=== PATIENT | female | born 1945 | race Caucasian/White ===

== ENCOUNTER 2017-07-10 10:05 | Emergency (ER) | payer MEDICARE ==
[~2017-07-10] VITALS: Ht 157.5 cm; Wt 70.0 kg
[2017-07-10 10:08] VITALS: Ht 157.5 cm; Wt 70.0 kg
--- NOTE | 2017-07-10 10:24 | ERD ---
ER Documentation Chief Complaint Chief Complaint right eye pain/ hemmorrhage?, also has hernandez HPI This is a 72-year-old female with a history of hypertension who is presenting with right-sided facial and ocular pain that started shortly after waking up this morning. Her headache started on its own. She has a mild right sided aching to the face and head. The patient also noticed bleeding around the eye, which was concerning to her and ultimately prompted her to come to the ER. It was not after having a bowl movement or after coughing. She doesn't recall bearing down in any way. The patient does not carry a diagnosis of hypertension. She was very busy hosting yesterday and thinks that perhaps that could be why her blood pressure is elevated today. The patient does not endorse any vision changes. She reports any changes to her vision. She has had no clouding or double or blurry vision. Her visual acuity is unchanged. The patient also reports a transient tingling sensation to her hands, but this has since resolved. She denies any history of trauma. The patient denies feeling sick recently. The patient denies fever or chills. The patient does not endorse neck or back pain. The patient denies lightheadedness or dizziness. The patient has had no chest pain or shortness of breath or trouble breathing. The patient denies nausea or vomiting. The patient denies abdominal pain or changes to bowel movements or urination. The patient has had no focal deficits. The patient has had no weakness or numbness or tingling to the face or extremities. ROS All systems reviewed and are negative except as per history of present illness. Medications Home Meds Reported Medications Gabapentin* (Gabapentin*) 100 Mg Capsule, 100 MG PO TID, #90 CAP 07/10/17 Meloxicam* (Meloxicam*) 7.5 Mg/5 Ml Oral.susp, 15 MG PO DAILY, #300 ML 07/10/17 Glipizide* (Glipizide*) 5 Mg Tablet, 5 MG PO DAILY, TAB 07/10/17 Metformin* (Glucophage*) 500 Mg Tab, 500 MG PO BID, #30 TAB 07/10/17 Allergies Allergies: Coded Allergies: No Known Allergy (Unverified , 07/10/17) PMhx/Soc History of Surgery: Yes (Cataract removal to the right eye.) Hx Neurological Disorder: No Hx Respiratory Disorders: No Hx Cardiac Disorders: No Hx Psychiatric Problems: No Hx Miscellaneous Medical Probl: Yes (DM) Hx Substance Use: No Hx Tobacco Use: No FmHx Family History: No coronary disease, No diabetes Physical Exam Vitals Vital Signs Date Time Temp Pulse Resp B/P Pulse Ox O2 Delivery O2 Flow Rate FiO2 07/10/17 14:35 98.7 70 20 149/93 100 Room Air 07/10/17 13:00 97.7 70 18 175/88 Room Air 07/10/17 12:04 97.8 73 20 190/75 Room Air 07/10/17 10:25 98.7 86 18 220/110 Room Air 07/10/17 10:08 98.2 77 18 226/106 99 Physical Exam Const: No apparent distress, well-developed, well-nourished Head: Normocephalic, Atraumatic Eyes: Right eye Subconjunctival hemorrhage. Extraocular movements intact. Pupils equal, round and reactive to light. Visual Acuity 20/30 in both eyes. Periorbital bruising and swelling. Negative Marleen testing. No corneal abrasion. ENT: Normal External Ears, Nose and Mouth. Neck: Full range of motion. No meningismus. Resp: Clear to auscultation bilaterally, No wheezes, rales or rhonchi Cardio: Regular rate and rhythm. No murmurs, rubs or gallops Abd: Soft, non tender, non distended. Normal bowel sounds Skin: No petechiae or rashes Back: No midline tenderness. No CVA tenderness Ext: No cyanosis, or edema Neur: Awake and alert, oriented 4. Cranial nerves intact. No facial droop. Normal strength, sensation and coordination. Psych: Normal Mood and Affect Result Diagram: 07/10/17 1055 07/10/17 1055 Results 24 hrs Laboratory Tests Test 07/10/17 10:55 White Blood Count 5.810^3/ul Red Blood Count 4.0810^6/ul Hemoglobin 11.8g/dl Hematocrit 35.7% Mean Corpuscular Volume 87.5fl Mean Corpuscular Hemoglobin 28.9pg Mean Corpuscular Hemoglobin Concent 33.1g/dl Red Cell Distribution Width 12.7% Platelet Count 05613^3/UL Mean Platelet Volume 11.9fl Neutrophils % 50.5% Lymphocytes % 39.1% Monocytes % 6.6% Eosinophils % 3.1% Basophils % 0.5% Nucleated Red Blood Cells % 0.0/100WBC Neutrophils # 2.910^3/ul Lymphocytes # 2.310^3/ul Monocytes # 0.410^3/ul Eosinophils # 0.210^3/ul Basophils # 0.010^3/ul Nucleated Red Blood Cells # 0.010^3/ul Prothrombin Time 13.2Sec Prothrombin Time Ratio 1.0 INR International Normalized Ratio 0.99 Activated Partial Thromboplast Time 28.9Sec Sodium Level 143mmol/L Potassium Level 4.2mmol/L Chloride Level 103mmol/L Carbon Dioxide Level 29mmol/L Anion Gap 15 Blood Urea Nitrogen 17mg/dl Creatinine 0.72mg/dl Glucose Level 215mg/dl Calcium Level 9.9mg/dl Total Bilirubin 0.3mg/dl Direct Bilirubin 0.00mg/dl Indirect Bilirubin 0.3mg/dl Aspartate Amino Transf (AST/SGOT) 24IU/L Alanine Aminotransferase (ALT/SGPT) 27IU/L Alkaline Phosphatase 103IU/L Troponin I < 0.012ng/ml B-Type Natriuretic Peptide 324PG/ML Total Protein 8.1g/dl Albumin 4.3g/dl Globulin 3.80g/dl Albumin/Globulin Ratio 1.13 Current Medications Medications (Trade) Dose Ordered Sig/Natalie Route PRN Reason Start Time Stop Time Status Last Admin Dose Admin Hydralazine HCl (Apresoline) 10 mg ONCE ONCE IV 07/10/17 12:30 07/10/17 12:31 DC 07/10/17 13:14 Procedures/MDM MDM The patient's presentation warrants further investigation. The patient has a subconjunctival hemorrhage. It does not appear to be affecting her vision or extraocular movements. Her visual acuity was checked and appeared to be about 20 /30 in both eyes. Her pupils are equal, round, reactive to light and accommodation. I have less suspicion for a globe rupture. This does not appear to be associated with glaucoma. She does have a history of cataract removal to the right eye, and she does note taking aspirin occasionally. This may be related. She is also hypertensive which could be related. Her blood pressure was over 200/100. This will be controlled in the ER. This will absolutely need to be managed as an outpatient. There does not appear to be any cranial nerve involvement. However, given the extensive subconjunctival hemorrhage, I am concerned about the possibility of trauma. A CT of the head and face will be obtained. LABS The patient's blood work was obtained and reviewed. The patient's CBC shows no leukocytosis and no left shift. The patient is afebrile and does not appear systemically ill. I do not suspect a systemic infection. The patient is mildly anemic today. The patient's platelet count is unremarkable. The patient's CMP shows no signs of metabolic or electrolyte emergencies. The patient has unremarkable renal and hepatic function testing. The troponin is negative. The BNP is indeterminate. I have less suspicion for CHF in this patient. However, this may correlate with her high blood pressure, which needs to be managed. EKG EKG read by me: Rate/Rhythm: Regular rate and rhythm at a rate of 79 bpm Intervals: Normal [place]: Left axis Impression: No evidence of ischemia or arrhythmia IMAGING CXR FINDINGS: The heart is enlarged. There is increased right paratracheal density, likely secondary to vascular structures. There is no focal infiltrate. There is no pleural effusion or pneumothorax. IMPRESSION: Mild Cardiomegaly. Increased right paratracheal density is likely secondary to vascular structures. However confirmation with a CT chest with contrast on a routine basis is recommended, since a right paratracheal mass cannot be excluded. Electronically viewed and signed by .Chris Parker MD, MD on 07/10/2017 12: 33 CT Head IMPRESSION: No acute intracranial abnormalities. Mild chronic-appearing microvascular ischemic changes of the supratentorial white matter. MRI of the brain can be obtained for further evaluation. Partially visualized right periorbital soft tissue swelling Electronically viewed and signed by .Keyshawn Vallecillo MD, MD on 07/10/2017 12:02 CT Face Right subconjunctival hemorrhage measuring 6 mm in thickness. There is also retrobulbar hyperdensity measuring up to 2-3 mm concerning for hemorrhage. Recommend ophthalmology consult and consider brain/orbit MRI as clinically warranted. No acute facial fracture or dislocation. A call report was made and above findings were discussed and acknowledged by Tiffany Hu on 07/10/2017 12:10 PM . Electronically viewed and signed by .Bree Cooney MD, MD on 07/10/2017 12: 14 TREATMENT/DISPOSITION The patient's vision is intact. She does have subconjunctival hemorrhage. There is also the possibility of a small retrobulbar hemorrhage. The is no evidence of cranial nerve involvement. There is no globe rupture. There is no evidence of retinal detachment or vitreous hemorrhage. Visual acuity is intact. I am still suspicious of trauma, but the patient adamantly denies any injury to the eye. There is a possibility of having beared down to cause the hemorrhage. The case was discussed with an tellers supervisor, Dr. Jarrod Delaney, who would be happy to see the patient as an outpatient tomorrow. An appointment was scheduled for 07/11/2017 and the patient was given the information. The patient's images were discussed with the patient. She will follow up. At this time, I feel that the patient stable for discharge. The patient will follow-up with her primary care physician tomorrow as well. The patient will be given strict precautions with which to return to the emergency department. The patient's blood pressure was elevated at greater than 120/80 while in the emergency department. The patient was otherwise stable with no evidence of hypertensive urgency or emergency or end organ damage. The patient does not require admission for blood pressure control. The patient was given hydralazine in the ER with improvement of her blood pressure. She has sequela of long standing elevated blood pressure. This will likely require medical management as an outpatient. I have discussed with the patient the risks of hypertension. I have advised the patient to follow up with the primary care physician for outpatient monitoring and treatment for hypertension in 2-3 days. She will follow up tomorrow. I have instructed the patient to return to the ER for any new or worsening symptoms including chest pain, shortness of breath, headache, changes in vision, confusion, nausea, vomiting or LOC. Disclaimer: Inadvertent spelling and grammatical errors are likely due to EHR/ dictation software use and do not reflect on the overall quality of patient care. Note that the electronic time recorded on this note does not necessarily reflect the actual time of the patient encounter. Departure Diagnosis: Primary Impression: Subconjunctival hemorrhage Laterality: right Qualified Code: H11.31 - Subconjunctival hemorrhage of right eye Additional Impressions: Pain in eye Laterality: right Qualified Code: H57.11 - Pain of right eye Headache Headache type: unspecified Headache chronicity pattern: acute headache Intractability: not intractable Qualified Code: R51 - Acute nonintractable headache, unspecified headache type Hypertension Hypertension type: unspecified Qualified Code: I10 - Hypertension, unspecified type Periorbital hematoma Laterality: right Qualified Code: H05.231 - Periorbital hematoma of right eye Orbital hemorrhage Laterality: right Qualified Code: H05.231 - Hemorrhage of right orbit Condition: Stable TIFFANY MANRIQUEZ MD Jul 10, 2017 10:24
[2017-07-10 11:33] LABS: BASOPHILS % 0.5 % (0.0-2.0); EOSINOPHILS # 0.2 10^3/ul (0.0-0.5); EOSINOPHILS % 3.1 % (0.0-7.0); HEMATOCRIT 35.7 % (37.0-47.0); HEMOGLOBIN 11.8 g/dl (12.0-16.0); LYMPHOCYTES # 2.3 10^3/ul (0.8-2.9); LYMPHOCYTES % 39.1 % (15.0-51.0); MEAN CORPUSCULAR HEMOGLOBIN 28.9 pg (29.0-33.0); MEAN CORPUSCULAR HGB CONC 33.1 g/dl (32.0-37.0); MEAN CORPUSCULAR VOLUME 87.5 fl (82.0-101.0); MEAN PLATELET VOLUME 11.9 fl (7.4-10.4); MONOCYTE # 0.4 10^3/ul (0.3-0.9); MONOCYTES % 6.6 % (0.0-11.0); NEUTROPHIL # 2.9 10^3/ul (1.6-7.5); NEUTROPHILS % 50.5 % (39.0-77.0); PLATELET COUNT 194 10^3/UL (140-415); RED BLOOD COUNT 4.08 10^6/ul (4.20-5.40); RED CELL DISTRIBUTION WIDTH 12.7 % (11.5-14.5); WHITE BLOOD COUNT 5.8 10^3/ul (4.8-10.8)
[2017-07-10 11:47] LABS: INR 0.99; PARTIAL THROMBOPLASTIN TIME 28.9 Sec (25.0-35.0); PROTIME 13.2 Sec (11.9-14.9)
[2017-07-10 12:01] LABS: ALANINE AMINOTRANSFERASE 27 IU/L (13-69); ALBUMIN 4.3 g/dl (3.3-4.9); ALBUMIN/GLOBULIN RATIO 1.13; ALKALINE PHOSPHATASE 103 IU/L (42-121); ANION GAP 15 (8-16); ASPARTATE AMINO TRANSFERASE 24 IU/L (15-46); BILIRUBIN,INDIRECT 0.3 mg/dl (0-1.1); BILIRUBIN,TOTAL 0.3 mg/dl (0.2-1.3); BLOOD UREA NITROGEN 17 mg/dl (7-20); CALCIUM 9.9 mg/dl (8.4-10.2); CARBON DIOXIDE 29 mmol/L (21-31); CHLORIDE 103 mmol/L (97-110); CREATININE 0.72 mg/dl (0.44-1.00); GLUCOSE 215 mg/dl (70-220); POTASSIUM 4.2 mmol/L (3.5-5.1); SODIUM 143 mmol/L (135-144); TOTAL PROTEIN 8.1 g/dl (6.1-8.1)
--- NOTE | 2017-07-10 12:02 | RADRPT ---
PROCEDURE: CT Brain without contrast. CLINICAL INDICATION: Pain, headache, paresthesias TECHNIQUE: Routine CT scan of the brain was performed on a high resolution multi detector scanner without intravenous contrast. One or more of the following dose reduction techniques were used: Auto mated exposure control; Adjustment of the mA and/or kV according to patient size; Use of iterative r econstruction technique. CTDI = 42 mGy. DLP = 720 mGy-cm. DICOM images are available. COMPARISON: No prior relevant examinations are available for comparison. FINDINGS: Hemorrhage: No evidence of intracranial hemorrhage. Acute ischemic changes: No evidence of acute ischemic changes. Mass effect: None. Parenchymal volume: Within normal limits for age. Ventricular system: Concordant with parenchymal volume. Chronic changes: Mild chronic-appearing microvascular ischemic changes of the supratentorial white m atter. Dense asymmetric calcification of the left internal carotid artery and proximal divisions. Extracranial soft tissues: Partially visualized right periorbital soft tissue swelling. Calvarium: No fractures. Paranasal sinuses: Visualized paranasal sinuses are clear. Mastoid air cells: Visualized mastoid air cells are clear. IMPRESSION: No acute intracranial abnormalities. Mild chronic-appearing microvascular ischemic changes of the supratentorial white matter. MRI of the brain can be obtained for further evaluation. Partially visualized right periorbital soft tissue swelling RPTAT: AADD .Keyshawn Vallecillo MD, MD Date Time Electronically viewed and signed by .Keyshawn Vallecillo MD, MD on 07/10/2017 12:02 .B/
[2017-07-10 12:11] LABS: B-TYPE NATRIURETIC PEPTIDE 324 PG/ML (0-125)
[2017-07-10 12:12] LABS: TROPONIN-I < 0.012 ng/ml (0.00-0.12)
--- NOTE | 2017-07-10 12:15 | RADRPT ---
PROCEDURE: CT scan facial bones CLINICAL INDICATION: Headache, non traumatic subconjunctival hemorrhage. Paresthesia. TECHNIQUE: CT scan of the face was performed on the a high-resolution multidetector CT scanner wit h multiple contiguous axial images obtained through the face. Coronal and sagittal reformatted imag es were obtained from the axial source images. One or more the following does reduction techniques w ere utilized: Automated exposure control, adjustment of the mA/ or kV according to patient's size, o r use of iterative reconstruction technique. Exam CTDI = 29.53 mGy and the DLP = 597.02 mGy-cm. DICOM images are available. COMPARISON: None available. FINDINGS: There is right subconjunctival hemorrhage measuring up to O 6 mm in thickness. There is also right r etrobulbar hyperdensity measuring up to 2-3 mm concerning for hemorrhage. There is mild right perior bital soft tissue swelling. There is thinning of bilateral lens indicative of prior lens replacement . The orbital globes contours are otherwise grossly intact. No acute fracture or dislocation is seen. Otherwise no significant soft tissue swelling is noted. The orbital globes contours are otherwise grossly intact. Mild leftward nasal septal deviation is no johana. Paranasal sinuses demonstrate mild scattered mucosal thickening or pronounced in ethmoid air ce lls. IMPRESSION: 1. Right subconjunctival hemorrhage measuring 6 mm in thickness. There is also retrobulbar hyperden sity measuring up to 2-3 mm concerning for hemorrhage. Recommend ophthalmology consult and consider brain/orbit MRI as clinically warranted. 2. No acute facial fracture or dislocation. A call report was made and above findings were discussed and acknowledged by Flaco Hu on 07/10/2017 12:10 PM . RPTAT: GG .Bree Cooney MD, MD Date Time Electronically viewed and signed by .Bree Cooney MD, MD on 07/10/2017 12:14 .N/
--- NOTE | 2017-07-10 12:33 | RADRPT ---
PROCEDURE: XR Chest. CLINICAL INDICATION: Chest pain , headache TECHNIQUE: Single portable view of the chest was obtained COMPARISON: None FINDINGS: The heart is enlarged. There is increased right paratracheal density, likely secondary to vascular structures. There is no focal infiltrate. There is no pleural effusion or pneumothorax. RPTAT: AA IMPRESSION: Mild Cardiomegaly. Increased right paratracheal density is likely secondary to vascular structures. However confirmatio n with a CT chest with contrast on a routine basis is recommended, since a right paratracheal mass c annot be excluded. .Chris Parker MD, MD Date Time Electronically viewed and signed by .Chris Parker MD, on 07/10/2017 12:33 .S/
[2017-07-10] MEDS ORDERED: METF500T4 PO (12:50)
[2017-07-10] MEDS ORDERED: GABA100C14 PO (12:51)
[2017-07-10] MEDS ORDERED: MELO7.5O PO (12:51)
[2017-07-10] MEDS ORDERED: GLIP5TAB13 PO (12:51)
[2017-07-10] MEDS: hydrALAzine 20 MG INJ IV ONE ×2 (12:55→13:14)
[2017-07-10 14:35] VITALS: BP 149/93; PULSE 70; RESP 20; TEMP 98.7
== END 2017-07-10 14:40 | disposition home or self-care (01) ==
LOC: E/R 10:05
DX: H57.11 Ocular pain, right eye (principal); R51 Headache; I10 Essential (primary) hypertension
CPT/HCPCS: 36415; 70450; 70486; 71010; 80053; 83880; 84484; 85025; 85610; 85730; 93005; 96374; 99285; J0360

== ENCOUNTER 2018-02-28 20:10 | Emergency (ER) | END 2018-02-28 22:01 | disposition home or self-care (01) ==

== ENCOUNTER 2018-03-10 19:30 | Inpatient (IN) | END 2018-03-12 14:19 | disposition home or self-care (01) | DRG 69 ==

== ENCOUNTER 2018-09-08 11:07 | Emergency (ER) | payer MEDICARE ==
[~2018-09-08] VITALS: Wt 65.4 kg
[~2018-09-08 11:07] MED LIST: AMLO-145 PO; ATOR40TA68 PO; CLOP75TA28 PO; GLIP5TAB13 PO; LOSA50TA14 PO; METF500T24 PO
--- NOTE | 2018-09-08 11:31 | ERD ---
ER Documentation Chief Complaint Chief Complaint high bp today and headache with vision disturbance. no neuro motor def HPI 73-year-old female presents the emergency department to check her blood pressure. Patient states that she was anxious and nervous surrounding a conversation she was having with her . She then checked her blood pressure and it was noted to be elevated. After noting that it was elevated, she states that she is "saw spots." She had no headache, focal weakness, numbness. She also reported no chest pain or shortness of breath or palpitations. ROS All systems reviewed and are negative except as per history of present illness. Medications Home Meds Active Scripts Atorvastatin* (Atorvastatin*) 40 Mg Tablet, 40 MG PO DAILY@21 for 30 Days, #30 TAB Prov:KRISTIN MONROE MD 03/12/18 Amlodipine Besylate* (Amlodipine Besylate*) 5 Mg Tablet, 5 MG PO DAILY for 30 Days, #30 TAB Prov:KRISTIN MONROE MD 03/12/18 Clopidogrel Bisulfate (Clopidogrel) 75 Mg Tablet, 75 MG PO DAILY for 30 Days, #30 TAB Prov:KRISTIN MONROE MD 03/12/18 Reported Medications Losartan Potassium* (Losartan Potassium*) 50 Mg Tablet, 50 MG PO DAILY, TAB 02/28/18 Metformin Hcl* (Metformin Hcl*) 500 Mg Tablet, 500 MG PO WITH BREAKFAST, #30 TAB 02/28/18 Glipizide* (Glipizide*) 5 Mg Tablet, 5 MG PO AC BREAKFAST, TAB 02/28/18 Allergies Allergies: Coded Allergies: No Known Allergy (Unverified , 03/07/18) PMhx/Soc Anesthesia Reaction: No Hx Neurological Disorder: No Hx Respiratory Disorders: No Hx Cardiac Disorders: No Hx Psychiatric Problems: No Hx Miscellaneous Medical Probl: Yes (See EMR for details .) Hx Alcohol Use: No Hx Substance Use: No Hx Tobacco Use: No Physical Exam Vitals Vital Signs Date Temp Pulse Resp B/P (MAP) Pulse Ox O2 O2 Flow FiO2 Time Delivery Rate 09/08/18 98.0 80 18 98 11:20 (126) Physical Exam GENERAL: The patient is well developed and appropriate for usual state of health in no apparent distress HEENT: Pupils equal, round, and reactive to light. EOMI. There is no scleral icterus. NECK: C-spine is soft and supple, there is no meningismus. There is no cervical lymphadenopathy. LUNGS: Clear to auscultation bilaterally. There are no rales, wheezes or rhonchi. HEART: Regular rate and rhythm, no murmurs, clicks, rubs or gallops. ABDOMEN: Soft, non-tender, non-distended. There are bowel sounds in all four quadrants. No rebound or guarding. EXTREMITIES: There is no peripheral cyanosis or edema. No focal swelling or erythema. NEURO: The patient moves all four extremities with 5/5 strength. Cranial nerves II - XII are intact. Normal gait. Alert and oriented SKIN: There is no apparent rash or petechiae. HEME/LYMPHATIC: There is no evidence of excessive bruising or lymphedema. PSYCHIATRIC: The patient does not appear anxious or depressed. Procedures/MDM Patient was taken to a room, seen and evaluated. Comfort measures were initiated. MEDICAL DECISION MAKIN-year-old female presents the emergency department with what appears to be anxiety related hypertension. Patient shows no evidence of cardiac, neurologic or other endorgan dysfunction related to her blood pre ssure. She appears clinically well and appropriate for outpatient supportive care. Departure Diagnosis: Primary Impression: Hypertension Condition: Stable Patient Instructions: High Blood Pressure (Hypertension) Additional Instructions: Please see your doctor this week to recheck your blood pressure. CALLI NEWELL Sep 08, 2018 11:31
[2018-09-08 11:45] VITALS: BP 183/77; PULSE 73; RESP 18
== END 2018-09-08 11:45 | disposition home or self-care (01) ==
LOC: E/R 11:07
DX: I10 Essential (primary) hypertension (principal); R40.2142 Coma scale, eyes open, spontaneous, at arrival to emergency department; R40.2362 Coma scale, best motor response, obeys commands, at arrival to emergency department; R40.2252 Coma scale, best verbal response, oriented, at arrival to emergency department; Z79.01 Long term (current) use of anticoagulants; Z79.84 Long term (current) use of oral hypoglycemic drugs
CPT/HCPCS: 99282